=== PATIENT | female | born 1975 | race Caucasian/White ===

== ENCOUNTER 2017-08-23 08:37 | Emergency (ER) | payer SELFPAY, MEDICAID ==
[2017-08-23 09:19] LABS: ADD MAN DIFF? NO
[2017-08-23] MEDS: KETOROLAC 15 MG INJ IV (09:23)
[2017-08-23 09:31] LABS: BASOPHILS % 0.5 % (0.0-2.0); EOSINOPHILS # 0.1 10^3/ul (0.0-0.5); EOSINOPHILS % 1.4 % (0.0-7.0); HEMATOCRIT 39.4 % (37.0-47.0); HEMOGLOBIN 12.9 g/dl (12.0-16.0); LYMPHOCYTES # 1.4 10^3/ul (0.8-2.9); LYMPHOCYTES % 24.1 % (15.0-51.0); MEAN CORPUSCULAR HEMOGLOBIN 27.6 pg (29.0-33.0); MEAN CORPUSCULAR HGB CONC 32.7 g/dl (32.0-37.0); MEAN CORPUSCULAR VOLUME 84.2 fl (82.0-101.0); MEAN PLATELET VOLUME 10.4 fl (7.4-10.4); MONOCYTE # 0.5 10^3/ul (0.3-0.9); MONOCYTES % 7.6 % (0.0-11.0); NEUTROPHIL # 3.9 10^3/ul (1.6-7.5); NEUTROPHILS % 66.1 % (39.0-77.0); PLATELET COUNT 226 10^3/UL (140-415); RED BLOOD COUNT 4.68 10^6/ul (4.20-5.40)
[2017-08-23 09:31] LABS: WHITE BLOOD COUNT 5.9 10^3/ul (4.8-10.8)
[2017-08-23 09:54] LABS: ANION GAP 15 (8-16); BLOOD UREA NITROGEN 16 mg/dl (7-20); CALCIUM 9.4 mg/dl (8.4-10.2); CARBON DIOXIDE 25 mmol/L (21-31); CHLORIDE 108 mmol/L (97-110); CREATININE 0.75 mg/dl (0.44-1.00); GLUCOSE 117 mg/dl (70-220); POTASSIUM 4.1 mmol/L (3.5-5.1); SODIUM 144 mmol/L (135-144)
[2017-08-23 10:03] LABS: D-DIMER 351.05 ng/ml (<460)
[2017-08-23 10:06] LABS: TROPONIN-I < 0.012 ng/ml (0.00-0.12)
== END 2017-08-23 11:02 | disposition home or self-care (01) ==
LOC: E/R 08:37
DX: R07.89 Other chest pain (principal)
CPT/HCPCS: 36415; 71045; 80048; 84484; 84703; 85025; 85378; 93005; 96374; 99285-25